=== PATIENT | female | born 1965 | race African-American/Black ===

== ENCOUNTER 2021-01-31 16:03 | Emergency (ER) | payer OTHER ==
[~2021-01-31] VITALS: Ht 162.6 cm; Wt 61.3 kg
[2021-01-31 16:35] VITALS: BP 133/84
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
== END 2021-01-31 18:19 | disposition home or self-care (01) ==
LOC: ER 16:03
DX: S00.83XA Contusion of other part of head, initial encounter (principal); M54.2 Cervicalgia; V89.9XXA Person injured in unspecified vehicle accident, initial encounter; Y93.55 Activity, bike riding; Y92.89 Other specified places as the place of occurrence of the external cause; Y99.8 Other external cause status
CPT/HCPCS: 70450; 99284-25